=== PATIENT | male | born 1950 | race Hispanic/Latino ===

== ENCOUNTER 2018-07-10 17:29 | Emergency (ER) | payer OTHER ==
[2018-07-10 18:14] LABS: #Basophils 0.1 thou/uL (0.0-0.2); #Eosinphils 0.1 thou/uL (0.0-0.7); #Lymphocytes 2.2 thou/uL (1.20-3.40); #Monocytes 0.8 thou/uL (0.11-0.59); #Neutrophils 4.4 thou/uL (1.40-6.50); %Basophils 1.7 % (0.0-1.0); %Eosinophils 0.9 % (0.0-10.0); %Lymphocytes 29.2 % (21.0-51.0); %Monocytes 10.3 % (0.0-10.0); %Neutrophils 57.9 % (42.0-75.0); Hemoglobin 15.2 g/dL (14.0-18.0); Mean Corpuscular HGB CONC 35.2 g/dL (32.0-36.0); Mean Corpuscular Hemoglobin 32.8 pg (27.0-31.0); Mean Corpuscular Volume 93.1 fL (78.0-98.0); Mean Platelet Volume 7.4 fL (7.4-10.4); Platelet Count 209 thou/uL (130-400); RBC Distribution Width 12.1 % (11.5-14.5); Red Blood Cell (RBC) Count 4.65 mill/uL (4.70-6.10); White Blood Cell (WBC) Count 7.6 thou/uL (4.8-10.8)
[2018-07-10 18:38] LABS: ALT (SGPT) 16 U/L (8-55); AST (SGOT) 19 U/L (5-34); Alkaline Phosphatase 93 U/L (40-150); Anion Gap 13 mmol/L (10-20); BUN (Urea Nitrogen) 9 mg/dL (8.4-25.7); Bilirubin, Total 0.8 mg/dL (0.2-1.2); CK (CPK) 134 U/L (30-200); Calc. Creatinine Clearance 0 mL/min (70-130); Calcium 8.8 mg/dL (7.8-10.44); Carbon Dioxide 21 mmol/L (23-31); Chloride 106 mmol/L (98-107); Estimated GFR-MDRD 88; Globulin 3.1 g/dL (2.4-3.5); Glucose 96 mg/dL (80-115); Lipase 35 U/L (8-78); Protein, Total 7.1 g/dL (5.8-8.1); Sodium 136 mmol/L (136-145)
[2018-07-10 18:42] LABS: CKMB 1.1 ng/mL (0-6.6); Troponin I Less than 0.010 ng/mL (< 0.028)
--- NOTE | 2018-07-10 19:26 | RAD ---
CHEST ONE VIEW: 07/10/18 HISTORY: Chest pain. COMPARISON: Chest radiograph 06/22/17. FINDINGS: The lungs are clear with some mild right upper lobe scarring, similar. There is mild prominence of th e pulmonary arteries. No pneumothorax. No acute osseous abnormality. IMPRESSION: Similar examination of the chest. No acute intrathoracic abnormality. POS: [facility]
[2018-07-10 21:48] LABS: Troponin I Less than 0.010 ng/mL (< 0.028)
--- NOTE | 2018-07-14 10:53 | EKG ---
Test Reason : CHEST PAIN Blood Pressure : / mmHG Vent. Rate : 075 BPM Atrial Rate : 075 BPM P-R Int : 164 ms QRS Dur : 084 ms QT Int : 404 ms P-R-T Axes : 027 -30 026 degrees QTc Int : 451 ms Normal sinus rhythm Left axis deviation Abnormal ECG Confirmed by BIA HOBSON, BILLY ([id number]), non linear editor ALEJANDRO LIMON ([id number]) on 07/14/2018 10:52:54 AM Referred By: Confirmed By:BILLY AMEZQUITA MD
== END 2018-07-10 22:17 | disposition home or self-care (01) ==
LOC: EEVIPCON 17:29 → ERS 17:29
DX: R07.9 Chest pain, unspecified (principal); I10 Essential (primary) hypertension; I25.10 Atherosclerotic heart disease of native coronary artery without angina pectoris; Z79.82 Long term (current) use of aspirin; Z86.73 Personal history of transient ischemic attack (TIA), and cerebral infarction without residual deficits; Z79.899 Other long term (current) drug therapy
CPT/HCPCS: 36415; 71045; 80053; 82553; 83690; 83880; 84484; 85025; 93005; 94760

== ENCOUNTER 2019-12-02 13:37 | Observation (INO) | payer OTHER ==
[2019-12-02 14:22] LABS: ALT (SGPT) 24 U/L (8-55); AST (SGOT) 21 U/L (5-34); Albumin 3.9 g/dL (3.4-4.8); Alkaline Phosphatase 90 U/L (40-110); Anion Gap 10 mmol/L (10-20); BUN (Urea Nitrogen) 14 mg/dL (8.4-25.7); Bilirubin, Total 0.6 mg/dL (0.2-1.2); CK (CPK) 169 U/L (30-200); Calc. Creatinine Clearance 0 mL/min (70-130); Calcium 8.5 mg/dL (7.8-10.44); Carbon Dioxide 25 mmol/L (23-31); Chloride 105 mmol/L (98-107); Estimated GFR-MDRD 53; Globulin 2.9 g/dL (2.4-3.5); Glucose 129 mg/dL (80-115); Lipase 34 U/L (8-78); Potassium 3.7 mmol/L (3.5-5.1); Protein, Total 6.8 g/dL (5.8-8.1); Sodium 136 mmol/L (136-145)
[2019-12-02 14:24] LABS: Hemoglobin 14.9 g/dL (14.0-18.0); Mean Corpuscular HGB CONC 33.4 g/dL (32.0-36.0); Mean Corpuscular Hemoglobin 31.4 pg (27.0-31.0); Mean Platelet Volume 8.1 fL (7.4-10.4); Platelet Count 259 thou/uL (130-400); Red Blood Cell (RBC) Count 4.73 mill/uL (4.70-6.10); White Blood Cell (WBC) Count 18.3 thou/uL (4.8-10.8)
[2019-12-02 14:27] LABS: Band 11 % (5-11); Eosinophils 1 % (0-10); Lymphocytes 8 % (21-51); MDiff Complete? YES; Monocytes 3 % (0-10); Neutrophil 76 % (42-75); Platelet Morphology Comment Appears Adequate; RBC Morphology Normal; Reactive Lymphocytes 1 % (0-10)
--- NOTE | 2019-12-02 14:33 | RAD ---
CHEST 1 VIEW PORTABLE: Date: 12/02/2019 HISTORY: Chest pain and shortness of breath. COMPARISON: 07/10/18. FINDINGS: Heart size is within normal limits. The lungs are clear. No confluent pneumonia, overt edema, or pleu ral effusion. IMPRESSION: No significant acute intrathoracic disease. POS: [facility]
[2019-12-02] MEDS ORDERED: Iopamidol-370 76% 500 ML 1 ML ONE (15:09)
--- NOTE | 2019-12-02 17:16 | CT ---
CT arteriogram chest with IV contrast and 3-D imaging HISTORY: Chest pain. Dyspnea. FINDINGS: There is good contrast opacification of the central pulmonary arteries and the thoracic aor ta with normal branching of the great vessels at the aortic arch. While there is good contrast opacification of the superior vena cava and aorta, limited opacification of the peripheral pulmonary arteries. No filling defects are evident. Mild atelectasis at the lung bases. Small hiatal hernia. IMPRESSION: No CT evidence of pulmonary embolus. Small hiatal hernia.
[2019-12-02 17:44] LABS: Troponin I Less than 0.010 ng/mL (< 0.028)
[2019-12-02 20:49] LABS: Troponin I Less than 0.010 ng/mL (< 0.028)
[2019-12-02] MEDS ORDERED: Ondansetron PF 4 MG/2 ML Vial IVP PRN (22:17)
[2019-12-02] MEDS ORDERED: Acetaminophen 325 MG TAB PO PRN (22:17)
[2019-12-02] MEDS ORDERED: Acetaminophen 650 MG Suppository PR PRN (22:17)
[2019-12-02] MEDS ORDERED: Ondansetron ODT 4 MG TAB PO PRN (22:17)
[2019-12-02] MEDS ORDERED: Nitroglycerin 0.4 MG TAB (25 Tab Bottle) PO PRN (22:25)
[2019-12-02 23:38] LABS: Lactic Acid 2.9 mmol/L (0.5-2.2)
[2019-12-02 23:42] LABS: Troponin I Less than 0.010 ng/mL (< 0.028)
--- NOTE | 2019-12-02 23:49 | HP ---
TIME OF ASSESSMENT: 2100. CHIEF COMPLAINT: Chest pain and shortness of breath. HISTORY OF PRESENT ILLNESS: Mr. Higgins is a 69-year-old gentleman, with a known history of coronary artery disease, who states he underwent a catheterization several years ago and was recommended stents, however, was not able to have the procedure done. He presents complaining of chest pain that started yesterday. States it was to the left side of the midsternum and nonradiating. He states yesterday it was 8/10 in severity. He is unsure how long it has been lasting and states he has memory problems due to previous stroke. Unable to describe the type of pain that he experienced and states that currently he has no pain. Pain was relieved by medications given while en route to the hospital. The patient states he has been experiencing shortness of breath for several months. He reports being on several medications in the past, but has been off his medications due to being in halfway. He does not recall the name of the production support specialist who he saw previously and does not recall when he was last seen for his coronary artery disease. The patient reports feeling generally unwell for the last several days with generalized aching. Reports feeling feverish but has not had his temperature checked. Denies any cough or hemoptysis. No nausea or vomiting. No abdominal pain. Reports having issues with decreased urinary flow, but no dysuria, hematuria, or frequency. Denies any bowel changes. All other review of systems are negative. In the emergency department, he underwent an EKG that showed a normal sinus rhythm with a heart rate of 93. LABORATORY STUDIES: He had laboratory studies done, which showed a negative troponin. BMP notable for creatinine of 134, GFR 53. No previous to compare to. Sodium is 136, potassium 3.7. Glucose 129. LFTs unremarkable. White count elevated at 18.3, hemoglobin 14.9, hematocrit 44.5, platelets 259. BNP less than 10. He did have an elevated D-dimer of 0.79. This prompted a CT angiogram of the chest which showed no CT evidence of PE. He was noted to have a small hiatal hernia. The patient had a plain chest x-ray done as well that showed no significant acute intrathoracic disease. He received 1.5 L of normal saline. Apparently, at present, he was given 324 mg of aspirin and 3 tablets of sublingual nitroglycerin. The fluid given in the ED was due to low systolic blood pressure in the 90s, which has improved to 109/77. PAST MEDICAL HISTORY: 1. Hypertension. 2. History of CVA. 3. Coronary artery disease. 4. History of colon cancer. 5. History of sleep apnea requiring CPAP. PAST SURGICAL HISTORY: 1. Appendectomy. 2. Abnormal heart catheterization. 3. Mood disorder. SOCIAL HISTORY: The patient is a former smoker. Denies any alcohol consumption or illicit drug use. He is currently in senior living. ALLERGIES: NO KNOWN DRUG ALLERGIES. CURRENT MEDICATIONS: The patient states he is not taking any of his medications currently, but he should be on the following. 1. Citalopram. 2. Isoniazid. 3. Paroxetine. 4. Bactrim. 5. Amlodipine. 6. Aspirin. 7. Omeprazole. 8. Isosorbide mononitrate. 9. Hydrocortisone, topical. 10. Atorvastatin. PHYSICAL EXAMINATION: GENERAL: The patient appears well developed, well nourished, is in no acute distress. VITAL SIGNS: Temperature 98.9, pulse 109, blood pressure 109/77, respirations 18, O2 saturation 97% on room air. HEENT: Normocephalic and atraumatic. Pupils are equal, round, and reactive to light. Sclerae without icterus. Oropharynx is clear. There is some notable right facial droop which the patient states is chronic and residual from previous stroke. Oropharynx is clear. NECK: Supple. LUNGS: Clear to auscultation bilaterally without any wheezes, rales, or rhonchi. CARDIAC: Regular rate and rhythm. ABDOMEN: Soft, nontender, nondistended. Normoactive bowel sounds present. EXTREMITIES: No lower leg swelling or edema. NEUROLOGIC: Alert and oriented x3. SKIN: Warm and dry. INVESTIGATIONS: As mentioned above in HPI. IMPRESSION AND PLAN: Mr. Higgins is a 69-year-old gentleman, with a known history of coronary artery disease, hypertension, and previous abnormal catheterization done 2-3 years ago, who is being admitted for management of the following. 1. Acute coronary syndrome rule out. The patient with chest pain for the last 2 days. States that it has fully resolved following aspirin and nitroglycerin given in senior living prior to his arrival. EKG was unremarkable. Troponins have been negative x2. Continue to trend troponins. We will consult Cardiology given known history of abnormal catheterization. We will check lipid panel. We will continue with daily baby aspirin. The patient has been off all his medications. We will resume once verified. We will keep the patient n.p.o. at midnight. 2. Shortness of breath with exertion. The patient states this has been going on for the last 2 to 3 days. No signs or symptoms of fluid overload and chest x-ray unremarkable. BNP normal. We will obtain an echo. Sats normal at this present time. CT angiogram was negative for pulmonary embolism. 3. Leukocytosis. UA/UCx. Check for influenza given feverish and aching type symptoms. CXR clear. Monitor for any other signs/symptoms of infection. Add-on lactic acid. 4. Hypertension. Monitor blood pressure. Resume home medications once verified. 5. Gastrointestinal prophylaxis with omeprazole, which he took previously. 6. Deep venous thrombosis prophylaxis with mechanical sequential compression devices. 7. Code status is full. He has no surrogate decision maker at this present time. The patient's case discussed with attending who agrees with plan of care as described above. Job ID: [id number] [facility] [place] [facility]
[2019-12-03 05:18] LABS: #Eosinphils 0.6 thou/uL (0.0-0.7); #Lymphocytes 1.3 thou/uL (1.20-3.40); #Monocytes 0.9 thou/uL (0.11-0.59); #Neutrophils 12.7 thou/uL (1.40-6.50); %Basophils 0.2 % (0.0-1.0); %Lymphocytes 8.2 % (21.0-51.0); %Monocytes 5.7 % (0.0-10.0); %Neutrophils 81.9 % (42.0-75.0); Hemoglobin 13.5 g/dL (14.0-18.0); Mean Corpuscular HGB CONC 33.6 g/dL (32.0-36.0); Mean Corpuscular Hemoglobin 32.1 pg (27.0-31.0); Mean Corpuscular Volume 95.3 fL (78.0-98.0); Mean Platelet Volume 8.2 fL (7.4-10.4); Platelet Count 235 thou/uL (130-400); RBC Distribution Width 12.2 % (11.5-14.5); Red Blood Cell (RBC) Count 4.22 mill/uL (4.70-6.10); White Blood Cell (WBC) Count 15.5 thou/uL (4.8-10.8)
[2019-12-03 05:35] LABS: Anion Gap 9 mmol/L (10-20); BUN (Urea Nitrogen) 13 mg/dL (8.4-25.7); Calc. Creatinine Clearance 0 mL/min (70-130); Calcium 8.4 mg/dL (7.8-10.44); Carbon Dioxide 21 mmol/L (23-31); Cardiac Risk 2.4 (Less than 4.5); Chloride 111 mmol/L (98-107); Cholesterol 86 mg/dl (< 200 Desired); Estimated GFR-MDRD 77; Glucose 122 mg/dL (80-115); HDL Cholesterol 36 mg/dL (>60 Neg Risk); LDL Cholesterol, Calculated 39 mg/dL; Potassium 4.2 mmol/L (3.5-5.1); Sodium 137 mmol/L (136-145); Triglycerides 57 mg/dL (Less than 150)
[2019-12-03 07:49] VITALS: BMI 33.9
[2019-12-03] MEDS: Famotidine/PF 20 mg/2ml Vial SLOW IVP SCH ×2 (09:13→21:18)
[2019-12-03] MEDS ORDERED: Isosorbide Mononitrate (ER) 30 MG TAB PO SCH (11:45)
[2019-12-03] MEDS ORDERED: Aspirin 81 mg Enteric Coated Tablet PO SCH (11:45)
[2019-12-03] MEDS ORDERED: Amlodipine 5 MG TAB PO SCH (11:45)
[2019-12-03] MEDS ORDERED: Acetaminophen 325 MG TAB PO PRN (11:49)
[2019-12-03 12:51] LABS: Bacteria/HPF None Seen HPF (None Seen); Bilirubin Negative (Negative); Blood, Urine Negative (Negative); Clarity Clear (Clear); Glucose, Urine (Dipstick) Normal (Negative); Leukocyte Negative Leu/uL (Negative); Nitrite Negative (Negative); Protein, Urine (Dipstick) Negative (Neg-Trace); RBC/HPF 0-3 HPF (0-3); Squamous Epithelial None Seen HPF (0-3); Urobilinogen Normal mg/dL (Less than 2); WBC/HPF 0-3 HPF (0-3)
[2019-12-03 12:52] LABS: Urine Culture Reflex No No
[2019-12-03 13:02] LABS: Amphetamine Not Detected (NotDetected); Barbiturates Screen Not Detected (NotDetected); Benzodiazepine Screen Not Detected (NotDetected); Cocaine Metabolite Screen Not Detected (NotDetected); Medtox Control Line Valid? VALID (VALID); Medtox Reader # READER 1; Methadone Not Detected (NotDetected); Methamphetamine Not Detected (NotDetected); Opiate Screen Not Detected (NotDetected); Oxycodone Screen Not Detected (NotDetected); Phencyclidine (PCP) Not Detected (NotDetected); THC/Cannabinoid Screen Not Detected (NotDetected); Tricyclic Screen Not Detected (NotDetected)
--- NOTE | 2019-12-03 15:14 | PDOC.HOSPP ---
- Subjective Encounter Date: 12/03/19 Encounter Time: 12:00 Subjective: Pt seen for followup re: chest pain. Feels better. - Objective Vital Signs & Weight: Vital Signs (12 hours) Temp Pulse Resp BP BP Pulse Ox 12/03/19 14:37 72 134/84 12/03/19 11:05 98.1 F 72 14 113/56 L 98 12/03/19 07:05 98.8 F 66 18 124/61 98 Weight Admit Weight 210 lb 6 oz Weight 210 lb 6 oz Result Diagrams: 12/03/19 04:49 12/03/19 04:49 Additional Labs: Labs and MARs reviewed by ok Hospitalist ROS - Review of Systems Respiratory: reports: cough, dry, SOB with excertion. denies: shortness of breath, hemoptysis, pleuritic pain, sputum, wheezing Cardiovascular: reports: chest pain. denies: palpitations, orthopnea, paroxysmal noc. dyspnea, edema, light headedness - Medication Medications: Active Medications Generic Name Dose Route Start Last Admin Trade Name Freq PRN Reason Stop Dose Admin Famotidine 20 mg 12/03/19 09:00 12/03/19 09:13 Pepcid SLOW IVP 20 mg Q12HR JAMILA Administration Sodium Chloride 10 ml 12/02/19 22:17 12/03/19 09:14 Flush - Normal Saline IVF 10 ml Q12HR PRN Administration Saline Flush - Exam General - other findings: obesity Eye: anicteric sclera ENT: moist mucosa Neck: supple Heart: RRR Respiratory: CTAB, no rales Gastrointestinal: soft, non-tender Extremities: no cyanosis Musculoskeletal: no muscle wasting Psychiatric: normal affect, normal behavior Hosp A/P (1) Chest pain Code(s): R07.9 - CHEST PAIN, UNSPECIFIED Status: Acute (2) Leucocytosis Code(s): D72.829 - ELEVATED WHITE BLOOD CELL COUNT, UNSPECIFIED Status: Acute (3) Low TSH level Code(s): R79.89 - OTHER SPECIFIED ABNORMAL FINDINGS OF BLOOD CHEMISTRY Status : Acute (4) HTN (hypertension) Code(s): I10 - ESSENTIAL (PRIMARY) HYPERTENSION Status: Chronic (5) JOSE A (obstructive sleep apnea) Code(s): G47.33 - OBSTRUCTIVE SLEEP APNEA (ADULT) (PEDIATRIC) Status: Chronic - Plan Await cardiology input. Pt is afebrile. FreeT4 normal. Leucocytosis improving. Flu swab negative. HTN controlled.
--- NOTE | 2019-12-03 16:28 | CON ---
DATE OF CONSULTATION: HISTORY OF PRESENT ILLNESS: The patient is a 69-year-old gentleman with a history of coronary artery disease, who presents with recurrent chest discomfort. The patient states approximately 10 years ago, he was diagnosed with coronary artery disease. He underwent a cardiac catheterization and the patient was treated medically. The patient has been had stable angina. He reports that approximately a few times a month, he will have left-sided chest discomfort. This sometimes radiates into his left arm. Chest pain usually is relieved by 1 to 2 nitroglycerin tablets. For the past 2 months, the patient has not received any of his medications including aspirin. He has noticed increasing chest discomfort. The patient presented to the emergency room after he took several nitroglycerin tablets without resolution of his chest pain. PAST MEDICAL HISTORY: 1. CAD. 2. CVA. 3. Hypertension. 4. Dyslipidemia. 5. Colon carcinoma. PAST SURGICAL HISTORY: Appendectomy. SOCIAL HISTORY: Former smoker. ALLERGIES: NO KNOWN DRUG ALLERGIES. MEDICATIONS: See nursing list. FAMILY HISTORY: Positive family history of heart disease. PHYSICAL EXAMINATION: GENERAL: This is an obese gentleman, in no acute distress. VITAL SIGNS: Blood pressure 124/60. NECK: No jugular venous distention. LUNGS: Clear to auscultation. HEART: Regular rate and rhythm. Normal S1 and S2. No murmurs. ABDOMEN: Nondistended. EXTREMITIES: Showed no edema. VASCULAR: Radial pulse 2+. LABORATORY DATA: White blood cell count 15.5, hemoglobin 13.5, hematocrit 40.2 , and his platelets were 235. Sodium is 137, potassium 4.2, chloride 111, bicarbonate 21, BUN 13, and creatinine 0.9. EKG revealed normal sinus rhythm with left anterior fascicular block. IMPRESSION AND PLAN: 1. Chest pain suggestive of angina. 2. History of coronary artery disease. 3. History of cerebrovascular accident. 4. Hypertension. 5. Dyslipidemia. This gentleman presents with increasing angina. He has not received his cardiac medications in [facility] for the past 2 months. We would recommend restarting his medications. The patient should need to remain on his aspirin and Lipitor. We will follow this patient with you through his hospitalization. Job ID: [id number] [facility]
[2019-12-03] MEDS ORDERED: Atorvastatin Calcium 40 MG TAB PO SCH (21:00)
[2019-12-04 08:07] VITALS: TEMP 97.6
[2019-12-04] MEDS ORDERED: Aspirin 81 mg Enteric Coated Tablet PO SCH (09:00)
[2019-12-04] MEDS ORDERED: Famotidine 20 MG TAB PO SCH (09:00)
[2019-12-04] MEDS ORDERED: Isosorbide Mononitrate (ER) 30 MG TAB PO SCH (09:00)
[2019-12-04] MEDS ORDERED: Amlodipine 5 MG TAB PO SCH (09:00)
[2019-12-04 10:49] LABS: #Eosinphils 0.4 thou/uL (0.0-0.7); #Lymphocytes 1.4 thou/uL (1.20-3.40); #Monocytes 0.4 thou/uL (0.11-0.59); #Neutrophils 4.3 thou/uL (1.40-6.50); %Basophils 0.7 % (0.0-1.0); %Eosinophils 6.9 % (0.0-10.0); %Lymphocytes 20.8 % (21.0-51.0); %Monocytes 5.4 % (0.0-10.0); %Neutrophils 66.2 % (42.0-75.0); Hemoglobin 14.4 g/dL (14.0-18.0); Mean Corpuscular HGB CONC 33.5 g/dL (32.0-36.0); Mean Corpuscular Hemoglobin 31.6 pg (27.0-31.0); Mean Corpuscular Volume 94.1 fL (78.0-98.0); Mean Platelet Volume 8.1 fL (7.4-10.4); Platelet Count 240 thou/uL (130-400); RBC Distribution Width 12.2 % (11.5-14.5); Red Blood Cell (RBC) Count 4.56 mill/uL (4.70-6.10); White Blood Cell (WBC) Count 6.5 thou/uL (4.8-10.8)
[2019-12-04 11:07] LABS: Anion Gap 11 mmol/L (10-20); BUN (Urea Nitrogen) 12 mg/dL (8.4-25.7); Calc. Creatinine Clearance 84 mL/min (70-130); Calcium 9.1 mg/dL (7.8-10.44); Carbon Dioxide 23 mmol/L (23-31); Chloride 107 mmol/L (98-107); Estimated GFR-MDRD 66; Glucose 235 mg/dL (80-115); Potassium 4.5 mmol/L (3.5-5.1); Sodium 136 mmol/L (136-145)
[2019-12-04 11:52] VITALS: BP 131/80
--- NOTE | 2019-12-04 13:47 | DIS ---
DATE OF ADMISSION: 12/02/2019 DATE OF DISCHARGE: 12/04/2019 PRIMARY CARE PROVIDER: Unknown. DISCHARGE DIAGNOSES: 1. Chest pain. 2. Chest pain most likely secondary to musculoskeletal etiology. CONDITION OF PATIENT ON THE DAY OF DISCHARGE: Stable. I assessed Mr. Higgins on the day of discharge. He denies any chest pain or shortness of breath. Vital signs are stable. S1 and S2 are heard, regular. Lungs are clear to auscultation bilaterally. HOSPITAL COURSE: Mr. Higgins is a pleasant 69-year-old gentleman, who was admitted to [facility] on December 02, 2019, for a chest pain. He had CT angiogram of the chest, which did not show any evidence of pulmonary embolus. He was seen by Cardiology Service. His chest pain resolved. Troponins were normal. He also had 2D echocardiogram, which showed left ventricular ejection fraction of 55% to 60%, mild tricuspid regurgitation, and mild mitral regurgitation. He had leukocytosis at the time of admission, but he did not have any fevers. Leukocytosis resolved without any need for antibiotics. He had decreased TSH of 0.3345, but free T4 was normal at 0.77. He is advised to have his thyroid profile checked through primary care provider in 6 weeks time. On the day of discharge, he has sodium 136, potassium 4.5, and creatinine 1.1. White count 6500, hemoglobin 14,400, and platelet count 240,000. Urine toxicology screen was negative during this hospitalization. Urinalysis did not show any evidence of infection. DISCHARGE MEDICATIONS: 1. Norvasc 2.5 mg daily. 2. Aspirin 81 mg daily. 3. Lipitor 40 mg at bedtime. 4. Citalopram 20 mg daily. 5. Hydrocortisone cream 2 times a day. 6. Isoniazid 900 mg as directed. 7. Isosorbide mononitrate 30 mg daily. 8. Omeprazole 20 mg daily. 9. Vitamin B6 as directed. 10. Bactrim Double Strength one tablet 2 times a day. DISCHARGE DESTINATION: [place] [facility]. DIET: Heart healthy. ACTIVITY: Ad ariel. Job ID: [id number]
--- NOTE | 2019-12-07 14:20 | EKG ---
Test Reason : CHEST PAIN Blood Pressure : / mmHG Vent. Rate : 093 BPM Atrial Rate : 093 BPM P-R Int : 176 ms QRS Dur : 086 ms QT Int : 362 ms P-R-T Axes : 035 -45 032 degrees QTc Int : 450 ms Normal sinus rhythm Left anterior fascicular block Nonspecific ST abnormality Abnormal ECG Confirmed by ANGELIQUE URBINA DO ([id number]), senior editor LETTY LANDERS ([id number]) on 12/07/2019 2:20:30 PM Referred By: Confirmed By:ANGELIQUE URBINA DO
== END 2019-12-04 14:36 ==
LOC: EEVIPCON 13:37 → ERS 13:37 → ERHOLD 19:44 → 2SW 12-03 07:20
PROVIDERS: ADMIT Family Medicine; ATTEND Family Medicine
DX: R07.2 Precordial pain (principal); R06.02 Shortness of breath; I25.10 Atherosclerotic heart disease of native coronary artery without angina pectoris; K44.9 Diaphragmatic hernia without obstruction or gangrene; D72.829 Elevated white blood cell count, unspecified; R79.89 Other specified abnormal findings of blood chemistry; G47.33 Obstructive sleep apnea (adult) (pediatric); Z86.73 Personal history of transient ischemic attack (TIA), and cerebral infarction without residual deficits; Z87.891 Personal history of nicotine dependence; Z79.82 Long term (current) use of aspirin; Z79.899 Other long term (current) drug therapy; Z99.89 Dependence on other enabling machines and devices
CPT/HCPCS: 36415; 71045; 71275; 80048; 80053; 80061; 80306; 81001; 82550; 83605; 83690; 83735; 83880; 84145; 84439; 84443; 84484; 85025; 85379; 87804; 93005; 93306; 94760; 96360; 96361; 96374; 96376; G0378; Q9967; S0028